=== PATIENT | female | born 1975 | race Caucasian/White ===

== ENCOUNTER → 2019-09-20 | Outpatient (CLI) | payer OTHER | LOC: MRI 07:31 | DX: M47.816 Spondylosis without myelopathy or radiculopathy, lumbar region (principal); M48.56XA Collapsed vertebra, not elsewhere classified, lumbar region, initial encounter for fracture; M25.78 Osteophyte, vertebrae; M51.26 Other intervertebral disc displacement, lumbar region ==

== ENCOUNTER → 2019-10-03 | Outpatient (CLI) | payer OTHER ==
[~2019-10-03] VITALS: Ht 177.8 cm; Wt 106.6 kg
[~2019-10-03] MED LIST: ADDERALL 20 MG20 MG PO; HYDROXYZINE HCL10 M2 PO; MEDROLDOSEPACK PO; NABUMETONE 500500 M1 PO; NEURONTIN 300M300 M2 PO; NORCO 10-325 T1 EACH PO; ROBAXIN PO; TRAZODONE HCL50 MG PO; VALIUM5 MG PO; VITAMIN B-121000 MC2 SUBLING; ZANAFLEX4 M1 PO
[2019-10-03 08:45] VITALS: BP 131/85
--- NOTE | 2019-10-03 09:29 | NUR ---
Pain Clinic Assessment: 1. History of Osteoarthritis: Not Applicable History of Rheumatoid Arthritis: Not Applicable 2. Height: 5 ft. 10 in. 177.8 cm. Weight: 235.0 lb. oz. 106.596 kg. Patient's BMI: 33.7 3. Vital Signs: BP: 131/85 Pulse: 78 Resp: 14 Temp: 02 Sat: 100 ECG Mon: 4. Pain Intensity: 6 5. Fall Risk: Dizziness: N Needs help standing or walking: N Fallen in the last 3 months: N Fall risk comments: 6. Patient on Blood Thinner: None 7. History of Hypertension: N 8. Opioid Therapy greater than 6 weeks: Y Opiate Contract Signed: 9. Risk Assessment Tool Provided: 10. Functional Assessment Tool: 11. Recreational Drug Use: Never Drug Type: Tobacco Use: Never Smoker Tobacco Type: Amount or Packs/day: How Many Years: Alcohol Use: No Frequency: Quant:
--- NOTE | 2019-10-18 13:51 | HPC ---
[facility] [address] [place] [address] PAIN MANAGEMENT CONSULTATION Name: ERIN MIRAMONTES Room #: REG CARMEN Macario.#: [id number] Admission: 10/03/19 Attend Phys: Corinne Morrison MD Discharge: Date of : 75 Report #: [id number] THIS REPORT FOR: cc: Parker Weiner,Corinne Reid MD ~ CC: Parker Morrison DATE OF SERVICE: 10/03/2019 CHIEF COMPLAINT: Mid back and lower extremity pain. HISTORY: The patient is a 44-year-old female, who has been referred to the Pain Clinic for evaluation. The patient has noted some pain and discomfort since August of this year. States that she felt like something moved out of place in her lower back. Notes that the pain is worse with certain activities. Standing and sitting can sometimes exacerbate the pain. Notes that sometimes the pain is better when she lies down. She has noted some improvement with use of pain medications. Heat can be soothing. Describes it as intermittent, shooting, burning and pulling. Today, she rates her pain as a 6/10. It can rise to the level of 9/10. She noticed the onset of her pain in August after bending over to draft roller picker her 20-pound grandson, he had tipped over in a walker and hit his head. She has noticed that sometimes pain at the beltline radiates down into the right leg and involves her foot. She denies any trauma to her back. ALLERGIES: MORPHINE, CODEINE, TRAMADOL, HYDROMORPHONE. CURRENT MEDICATIONS: Vitamin B12; Robaxin 500 mg; Valium 5 mg p.r.n.; trazodone 50 mg; hydroxyzine 10 mg, a total of 20 mg daily; nabumetone 500 mg b.i.d., hydrocodone 10/325 p.r.n., Adderall 20 mg b.i.d. PAST MEDICAL HISTORY: Attention deficit hyperactivity disorder, chronic back pain, migraines, history of pernicious anemia, restless leg syndrome, and surgical menopause. PAST SURGICAL HISTORY: section x2 in 1994 and 06/2015, hysterectomy in 07/2007, gastric bypass on 02/11/2009, and plastic surgery in 06/2009. 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 REVIEW OF SYSTEMS: Generally good health, fatigue, weakness, headaches, wears glasses, ringing in the ears, shortness of breath, chest pain, shortness of breath with walking, bowel movement, rectal bleeding, abdominal pain, frequent recurrent headaches, dizziness, convulsion/seizures. [address] [address] PAIN MANAGEMENT CONSULTATION Name: ERIN MIRAMONTES Room #: REG CLMansi Macario.#: [id number] Admission: 10/03/19 Attend Phys: Corinne Morrison MD Discharge: Date of : 75 Report #: [id number] DIAGNOSTIC DATA: MRI of the lumbar spine dated 09/20/2019: 1. L2-L3: Bilateral facet hypertrophy and ligamentum flavum hypertrophy. No significant central canal stenosis or neural foraminal narrowing. 2. L3-L4: Bilateral facet hypertrophy and ligamentum flavum hypertrophy. No significant central canal stenosis or neural foraminal narrowing. 3. L4-L5: Broad-based posterior disk bulge, bilateral facet hypertrophy and ligamentum flavum hypertrophy. No significant central canal stenosis. 4. L5-S1: Broad-based posterior disk bulge and bilateral facet hypertrophy. No significant canal stenosis. PAIN CLINIC ASSESSMENT AND PQRS: 1. The patient is not being treated for osteoarthritis or rheumatoid arthritis. 2. Height 5 feet 0 inch, weight 235 pounds, BMI is 33.7. 3. Vital signs: Blood pressure is 131/85, pulse 78, respiratory rate 14, room air saturation is 100%. 4. Pain intensity: 6/10. 5. Fall history: The patient has not fallen in the last 3 months. 6. Blood thinner: The patient is not on a blood thinning medication. 7. Hypertension: The patient is not being treated for hypertension. 8. Opioids greater than 6 weeks: The patient receives medication from one source. 9. Risk assessment tool: Low for opioid use. 10. Functional assessment tool: 45/70. 11. Recreational drug use: The patient denies. 12. Tobacco: The patient has never smoked. 13. Alcohol: The patient denies use of alcoholic beverages. PHYSICAL EXAMINATION: GENERAL: The patient is a well-developed, well-nourished, white female. Appears her stated age. She is alert and oriented x 3. Her affect is appropriate. Speech is fluent. HEENT: Normocephalic, atraumatic. Extraocular eye muscles intact. Sclerae nonicteric. Mucous membranes are moist. NECK: Without adenopathy or JVD. HEART: Regular rate. LUNGS: Clear to auscultation. ABDOMEN: Nontender. MUSCULOSKELETAL: Upper extremity muscle strength is judged to be 5/5 for the major muscle groups in the upper extremity. The patient is without significant scoliosis, kyphosis or lordosis. The patient has some pain and discomfort in the low back area near the posterior and superior iliac spine areas. Palpation in this area does reproduce a significant component of the patient's pain. Forward bending to touch her toes was not very problematic. Left and right lateral bending were not very problematic. Left lateral bending did cause some increased pain in the low back area. The patient has some pain and discomfort that is radiating down into her posterior portion of her leg and involving the [facility] [address] [place] [address] PAIN MANAGEMENT CONSULTATION Name: ERIN MIRAMONTES Room #: REG CARMEN AriasGaryRobert.#: [id number] Admission: 10/03/19 Attend Phys: Corinne Morrison MD Discharge: Date of : 75 Report #: [id number] right foot. Anterior and posterior spring tests were negative. Palpation in the left posterior superior iliac spine area near the gluteus rishabh and latissimus dorsi were positive for trigger points. RECOMMENDATIONS: We discussed the treatment options with the patient. At this juncture, we will have her try a conservative approach using Medrol Dosepak. She also has been given a script for Narcan 10/325 one p.o. daily. The patient also has been given a muscle relaxant, tizanidine 4 mg 1 p.o. b.i.d. She will return to the Pain Clinic. Should her pain continues to be problematic, we will consider a trigger point injection to the low back area or if her pain continues to be problematic and continues to radiate down into the leg, we may consider an epidural steroid injection. We would like to thank you for letting us participate in her care. We hope she continues to improve. <ELECTRONICALLY SIGNED> By: Corinne Morrison MD 10/18/19 1358 [id number] Corinne Morrison MD /nt
== END ==
LOC: PAIN 10-02 12:44
DX: M51.27 Other intervertebral disc displacement, lumbosacral region (principal); I10 Essential (primary) hypertension; G43.909 Migraine, unspecified, not intractable, without status migrainosus; F11.20 Opioid dependence, uncomplicated; Z88.5 Allergy status to narcotic agent; Z88.8 Allergy status to other drugs, medicaments and biological substances

== ENCOUNTER 2019-10-31 03:37 | Emergency (ER) | payer OTHER ==
[~2019-10-31] VITALS: Ht 177.8 cm; Wt 108.9 kg
[2019-10-31 04:27] LABS: ABSOLUTE NEUTROPHILS 3.7 thou/uL (1.4-8.2); BASOPHILS 1.1 % (0.0-2.0); HEMATOCRIT 35.8 % (37.0-47.0); HEMOGLOBIN 11.6 gm/dL (12.0-15.0); LYMPHOCYTES 39.4 % (24.0-44.0); MCH 26.3 pg (26.0-34.0); MCHC 32.4 g/dL (28.0-37.0); MCV 81.2 fL (80.0-100.0); MONOCYTES 8.9 % (1.0-8.0); PLATELET COUNT 339 thou/uL (150-400); POLYS 48.6 % (36.0-66.0); RBC 4.41 mil/uL (4.20-5.00); RDW 16.7 % (10.5-14.5); WBC 7.6 thou/uL (4.0-11.0)
[2019-10-31 04:31] LABS: URINE BILIRUBIN NEGATIVE (Negative); URINE BLOOD NEGATIVE (Negative); URINE CLARITY CLEAR; URINE COLOR YELLOW; URINE GLUCOSE-RANDOM* NEGATIVE (Negative); URINE KETONES NEGATIVE (Negative); URINE LEUKOCYTES-REFLEX NEGATIVE (Negative); URINE NITRITE-REFLEX NEGATIVE (Negative); URINE PROTEIN (DIPSTICK) NEGATIVE (Negative); URINE SPECIFIC GRAVITY 1.015 (1.005-1.035)
[2019-10-31 04:32] LABS: ANION GAP 12 mmol/L (7-16); BUN 12 mg/dL (7-18); CALCIUM 8.9 mg/dL (8.5-10.1); CHLORIDE 104 mmol/L (98-107); CO2 24 mmol/L (21-32); CREATININE 0.8 mg/dL (0.6-1.0); GLUCOSE 97 mg/dL (74-106); POTASSIUM 4.1 mmol/L (3.5-5.1); SODIUM 140 mmol/L (136-145)
[2019-10-31 04:35] LABS: APTT 27.1 Seconds (24.5-32.8); PROTIME 10.2 Seconds (9.3-11.4)
[2019-10-31 04:42] LABS: ALBUMIN 3.7 g/dL (3.4-5.0); MAGNESIUM 2.2 mg/dL (1.8-2.4); SGOT 23 U/L (15-37); SGPT 27 U/L (30-65); TOTAL BILIRUBIN 0.3 mg/dL (<0.1-1.0); TOTAL PROTEIN 7.5 g/dL (6.4-8.2); TROPONIN-I <0.06 ng/mL (<0.06)
[2019-10-31] MEDS ORDERED: VENTOLIN HFA 1818 GM INH (05:06)
[2019-10-31 05:55] VITALS: BP 124/76
--- NOTE | 2019-10-31 09:49 | EKG ---
[facility] [address] [place] [address] ELECTROCARDIOGRAM REPORT Name: ERIN MIRAMONTES Room #: DEP M.RGary#: [id number] Admission: 10/31/19 Attend Phys: Discharge: 10/31/19 Date of : 75 Report #: [id number] THIS REPORT FOR: cc: En Wesley MD, Neal A. MD Lundgren,Glen Juarez MD [facility] THIS REPORT FOR: //name// 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
== END 2019-10-31 05:57 | disposition home or self-care (01) ==
LOC: ER 03:37
PROVIDERS: Emergency Medicine
DX: R06.02 Shortness of breath (principal); R07.89 Other chest pain; R53.83 Other fatigue; R42 Dizziness and giddiness; R05 Cough; R51 Headache; R11.0 Nausea; E66.9 Obesity, unspecified; Z20.828 Contact with and (suspected) exposure to other viral communicable diseases; Z90.710 Acquired absence of both cervix and uterus; Z79.899 Other long term (current) drug therapy; Z88.6 Allergy status to analgesic agent; Z88.5 Allergy status to narcotic agent; Z88.8 Allergy status to other drugs, medicaments and biological substances; Z98.890 Other specified postprocedural states

== ENCOUNTER 2019-11-09 14:24 | Emergency (ER) | payer OTHER ==
[~2019-11-09] VITALS: Ht 177.8 cm; Wt 108.9 kg
[~2019-11-09 14:24] MED LIST changes: +VENTOLIN HFA 1818 GM INH
[2019-11-09] MEDS ORDERED: IMITREX100 MG PO (14:46)
[2019-11-09 15:09] LABS: ABSOLUTE NEUTROPHILS 2.8 thou/uL (1.4-8.2); BASOPHILS 1.4 % (0.0-2.0); EOSINOPHILS 2.2 % (0.0-3.0); HEMATOCRIT 37.5 % (37.0-47.0); HEMOGLOBIN 12.3 gm/dL (12.0-15.0); LYMPHOCYTES 39.4 % (24.0-44.0); MCH 26.4 pg (26.0-34.0); MCHC 32.7 g/dL (28.0-37.0); MCV 80.8 fL (80.0-100.0); MONOCYTES 8.3 % (1.0-8.0); PLATELET COUNT 333 thou/uL (150-400); POLYS 48.7 % (36.0-66.0); RBC 4.65 mil/uL (4.20-5.00); RDW 16.6 % (10.5-14.5); WBC 5.8 thou/uL (4.0-11.0)
[2019-11-09 15:18] LABS: CALCIUM 9.6 mg/dL (8.5-10.1); CREATININE 0.7 mg/dL (0.6-1.0); POTASSIUM 4.3 mmol/L (3.5-5.1)
[2019-11-09 16:22] VITALS: BP 111/70
--- NOTE | 2019-11-12 09:11 | EKG ---
[facility] [address] [place] [address] ELECTROCARDIOGRAM REPORT Name: ERIN MIRAMONTES Room #: DEP [facility].R.#: [id number] Admission: 11/09/19 Attend Phys: Discharge: 11/09/19 Date of : 75 Report #: [id number] THIS REPORT FOR: cc: En Wesley MD, Neal A. 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
== END 2019-11-09 16:24 | disposition home or self-care (01) ==
LOC: ER 14:24
PROVIDERS: Emergency Medicine
DX: R06.00 Dyspnea, unspecified (principal); Z90.710 Acquired absence of both cervix and uterus; Z98.890 Other specified postprocedural states; Z88.6 Allergy status to analgesic agent; Z88.5 Allergy status to narcotic agent

== ENCOUNTER → 2019-12-05 | Outpatient (CLI) | payer OTHER ==
[~2019-12-05] VITALS: Ht 177.8 cm; Wt 109.4 kg
[~2019-12-05] MED LIST changes: +IMITREX100 MG PO; +TOPAMAX50 MG PO
[2019-12-05 13:53] VITALS: BP 126/73
--- NOTE | 2019-12-05 14:06 | NUR ---
Pain Clinic Assessment: 1. History of Osteoarthritis: Not Applicable History of Rheumatoid Arthritis: Not Applicable 2. Height: 5 ft. 10 in. 177.8 cm. Weight: 241.2 lb. oz. 109.408 kg. Patient's BMI: 34.6 3. Vital Signs: BP: 126/73 Pulse: 70 Resp: 16 Temp: 02 Sat: 96 ECG Mon: 4. Pain Intensity: 6 5. Fall Risk: Dizziness: N Needs help standing or walking: N Fallen in the last 3 months: N Fall risk comments: 6. Patient on Blood Thinner: None 7. History of Hypertension: N 8. Opioid Therapy greater than 6 weeks: Y Opiate Contract Signed: 9. Risk Assessment Tool Provided: 10. Functional Assessment Tool: 11. Recreational Drug Use: Never Drug Type: Tobacco Use: Never Smoker Tobacco Type: Amount or Packs/day: How Many Years: Alcohol Use: No Frequency: Quant:
--- NOTE | 2019-12-12 07:58 | HPC ---
[facility] [address] [place] [address] PAIN MANAGEMENT CONSULTATION Name: ERIN MIRAMONTES Room #: REG CARMEN Macario.#: [id number] Admission: 12/05/19 Attend Phys: Corinne Morrison MD Discharge: Date of : 75 Report #: [id number] THIS REPORT FOR: cc: En Wesley MD, Neal A. MD Brown,Corinne Gaspar MD ~ CC: Corinne Wesley DATE OF SERVICE: 12/05/2019 CHIEF COMPLAINT: Low back pain and right shoulder pain. HISTORY: The patient is a 44-year-old female who has been referred to the pain clinic because of low back pain. 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 With the activities associated with her job she notes worsening of her pain. 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 Lifting and moving them has exacerbated the pain and discomfort which she has been experiencing. She also notes some pain and discomfort with lifting her grandchild. She has noticed right shoulder pain as well as pain involving the lower portion of her back. The patient states that she is working with obese patients who weigh 300-400 pounds. She has not had physical therapy. She has not had chiropractic treatment. Notes that the pain is worse or can be exacerbated by sitting, standing, bending, squatting. She has used heat as well as medications. She has tried icy hot to the affected area. ALLERGIES: MORPHINE, CODEINE, TRAMADOL, HYDROMORPHONE. CURRENT MEDICATIONS: Vitamin B12, Robaxin 500 mg, Valium 5 mg p.r.n., trazodone 50 mg, hydroxyzine 10 mg total of 20 mg daily, nabumetone 500 mg b.i.d., hydrocodone 10/325, Adderall 20 mg b.i.d., Topamax 50 mg, Imitrex 100 mg, albuterol p.r.n., tizanidine 4 mg b.i.d., Valium 5 mg, trazodone 50 mg at bedtime, gabapentin. PAIN CLINIC ASSESSMENT AND PQRS: 1. The patient is not being treated for osteoarthritis. She is not being treated for rheumatoid arthritis. 2. Height 5 feet 10 inch, weight 241 pounds, BMI is 34. 3. Vital Signs: Blood pressure 126/73, pulse 70, respiratory rate 16, room air saturation 96%. 4. Pain intensity, 6/10. 5. Fall history: The patient has not fallen in the last 3 months. 6. Blood thinner. The patient is not on a blood thinning medication. 7. Hypertension. The patient is not being treated for hypertension. 8. Opioids. The patient receives [place] [address] PAIN MANAGEMENT CONSULTATION Name: ERIN MIRAMONTES Room #: REG CLMansi Cramer#: [id number] Admission: 12/05/19 Attend Phys: Corinne Morrison MD Discharge: Date of : 75 Report #: [id number] 9. Risk assessment tool, low for opioid use. 10. Functional assessment tool . 11. Recreational drug use. The patient denies. 12. Tobacco: The patient denies. 13. Alcohol: The patient denies frequent use of alcoholic beverages. PHYSICAL EXAMINATION: GENERAL: The patient is a well-developed, well-nourished, somewhat obese white female, appears her stated age. She is alert and oriented x 3. Her affect is appropriate. Speech is fluent. HEENT: Normocephalic, atraumatic. Extraocular eye muscles intact. Sclerae nonicteric. Mucous membranes are moist. The patient is wearing a mask. NECK: Without adenopathy or JVD. HEART: Regular rate. ABDOMEN: Nontender. LUNGS: Generally clear. MUSCULOSKELETAL: Upper extremity muscle strength, the patient complains of pain and discomfort involving her right arm. Has some pain and discomfort in the lower back. The patient without significant scoliosis, kyphosis or lordosis. IMPRESSION: 1. Right shoulder pain and low back pain. 2. Attention deficit hyperactivity disorder. 3. Migraines. 4. History of pernicious anemia. 5. Restless legs syndrome. 6. Surgical menopause. RECOMMENDATIONS: We discussed treatment options with the patient. At this juncture, we will have renewed the patient's [place]. She will take 10 mg one p.o. every 4-6 hours b.i.d. p.r.n. as needed. The patient will also continue with tizanidine 4 mg p.o. b.i.d. for muscle spasms. She will call us if she has any concerns. 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 She is aware of the risks and benefits of opioid use. We would like to thank you for letting us to participate in her care. We hope she continues to improve, again we discussed the benefits of good mechanics and [facility] [address] [place] [address] PAIN MANAGEMENT CONSULTATION Name: ERIN MIRAMONTES Room #: LEO Cramer#: [id number] Admission: 12/05/19 Attend Phys: Corinne Morrison MD Discharge: Date of : 75 Report #: [id number] that the patient should probably recruitment additional help from colleagues when moving larger patients. <ELECTRONICALLY SIGNED> By: Corinne Morrison MD 12/12/19 0758 2228 0428 Corinne Morrison MD /MARIXA
== END ==
LOC: PAIN 09:07
DX: M54.5 Low back pain (principal); M25.511 Pain in right shoulder; G43.909 Migraine, unspecified, not intractable, without status migrainosus; G25.81 Restless legs syndrome; Z86.2 Personal history of diseases of the blood and blood-forming organs and certain disorders involving the immune mechanism; Z95.1 Presence of aortocoronary bypass graft; Z88.5 Allergy status to narcotic agent; Z88.1 Allergy status to other antibiotic agents; Z88.8 Allergy status to other drugs, medicaments and biological substances; Z79.899 Other long term (current) drug therapy

== ENCOUNTER 2019-12-06 15:48 | Emergency (ER) | payer OTHER ==
[~2019-12-06] VITALS: Ht 177.8 cm; Wt 108.9 kg
[2019-12-06 16:27] LABS: BASOPHILS 0.3 % (0.0-2.0); EOSINOPHILS 0.8 % (0.0-3.0); HEMATOCRIT 40.5 % (37.0-47.0); MCH 25.8 pg (26.0-34.0); MCV 80.8 fL (80.0-100.0); PLATELET COUNT 365 thou/uL (150-400); POLYS 80.9 % (36.0-66.0); RBC 5.02 mil/uL (4.20-5.00); RDW 16.7 % (10.5-14.5); WBC 11.1 thou/uL (4.0-11.0)
[2019-12-06 16:35] LABS: ANION GAP 11 mmol/L (7-16); BUN 7 mg/dL (7-18); CALCIUM 9.6 mg/dL (8.5-10.1); CHLORIDE 100 mmol/L (98-107); CO2 25 mmol/L (21-32); CREATININE 0.9 mg/dL (0.6-1.0); GLUCOSE 134 mg/dL (74-106); POTASSIUM 3.6 mmol/L (3.5-5.1); SODIUM 136 mmol/L (136-145)
[2019-12-06 16:46] LABS: ALBUMIN 4.5 g/dL (3.4-5.0); LIPASE 208 U/L (73-393); SGOT 21 U/L (15-37); SGPT 33 U/L (30-65); TOTAL BILIRUBIN 0.7 mg/dL (<0.1-1.0); TOTAL PROTEIN 9.1 g/dL (6.4-8.2); TROPONIN-I <0.06 ng/mL (<0.06)
[2019-12-06 17:42] LABS: URINE BILIRUBIN NEGATIVE (Negative); URINE BLOOD NEGATIVE (Negative); URINE CLARITY CLEAR; URINE COLOR YELLOW; URINE GLUCOSE-RANDOM* NEGATIVE (Negative); URINE KETONES NEGATIVE (Negative); URINE LEUKOCYTES-REFLEX TRACE (Negative); URINE NITRITE-REFLEX NEGATIVE (Negative); URINE PROTEIN (DIPSTICK) NEGATIVE (Negative)
[2019-12-06 19:34] VITALS: BP 126/91
--- NOTE | 2019-12-07 08:19 | EKG ---
[facility] [place] [address] [place] [address] ELECTROCARDIOGRAM REPORT Name: ERIN MIRAMONTES Room #: DEP M.R.#: [id number] Admission: 12/06/19 Attend Phys: Discharge: 12/06/19 Date of : 75 Report #: [id number] THIS REPORT FOR: cc: En Wesley MD, Neal A. 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
== END 2019-12-06 19:30 | disposition home or self-care (01) ==
LOC: ER 15:48
PROVIDERS: Physician Assistant
DX: B34.9 Viral infection, unspecified (principal); R10.84 Generalized abdominal pain; R21 Rash and other nonspecific skin eruption; R06.02 Shortness of breath; Z98.84 Bariatric surgery status; Z79.899 Other long term (current) drug therapy; Z90.710 Acquired absence of both cervix and uterus; Z98.890 Other specified postprocedural states; Z88.6 Allergy status to analgesic agent

== ENCOUNTER → 2020-02-20 | Outpatient (CLI) | payer OTHER ==
[2020-02-20 10:47] LABS: ABSOLUTE NEUTROPHILS 5.6 thou/uL (1.4-8.2); BASOPHILS 0.5 % (0.0-2.0); EOSINOPHILS 1.5 % (0.0-3.0); HEMATOCRIT 33.7 % (37.0-47.0); HEMOGLOBIN 11.1 gm/dL (12.0-15.0); MCH 25.8 pg (26.0-34.0); MCV 78.2 fL (80.0-100.0); MONOCYTES 8.6 % (1.0-8.0); PLATELET COUNT 313 thou/uL (150-400); POLYS 70.4 % (36.0-66.0); RBC 4.31 mil/uL (4.20-5.00); RDW 17.3 % (10.5-14.5)
[2020-02-20 11:00] LABS: ALBUMIN 3.6 g/dL (3.4-5.0); CALCIUM 8.8 mg/dL (8.5-10.1); CREATININE 0.7 mg/dL (0.6-1.0); POTASSIUM 3.8 mmol/L (3.5-5.1); TOTAL BILIRUBIN 0.4 mg/dL (0.2-1.0); TOTAL PROTEIN 7.1 g/dL (6.4-8.2)
== END ==
LOC: ULTRA 10:12
PROVIDERS: ATTEND Nurse Practitioner
DX: K76.0 Fatty (change of) liver, not elsewhere classified (principal); J06.9 Acute upper respiratory infection, unspecified; L30.9 Dermatitis, unspecified; Z90.49 Acquired absence of other specified parts of digestive tract